=== PATIENT | male | born 1965 | race Hispanic/Latino ===

== ENCOUNTER 2018-03-02 12:54 | Emergency (ER) | payer OTHER ==
[~2018-03-02] VITALS: Ht 190.5 cm; Wt 145.1 kg
--- OUTSIDE RECORDS SUMMARY | 2018-03-02 12:57 | XMS REPORT ---
Author Author [facility] Address Unknown Phone Unavailable Care Team Providers Care Crayon Painter Name Role Phone LAURA SÁNCHEZ Unavailable Unavailable Problems This patient has no known problems. Allergies, Adverse Reactions, Alerts This patient has no known allergies or adverse reactions. Medications This patient has no known medications. Encounters Start Date/Time End Date/Time Encounter Type Admission Type Attending [facility] Care Department Encounter ID 2014-05-04 21:00:00 2014-05-04 23:59:00 Outpatient LAURA FLORES [facility] [place] SLEEP [id number]
--- OUTSIDE RECORDS SUMMARY | 2018-03-02 12:57 | XMS REPORT | Clinical Summary ---
Author Author [facility] Address Unknown Phone Unavailable Care Team Providers Care Special Event Assistant Name Role Phone Asked, Pcp PCP Unavailable Allergies No Known Allergies Current Medications Prescription Sig. Disp. Refills Start End Date Status Date PIOGLITAZONE HCL Take by mouth. Active (PIOGLITAZONE ORAL) ENALAPRIL MALEATE ORAL Take by mouth. Active METFORMIN HCL (METFORMIN Take by mouth. Active ORAL) GLIMEPIRIDE ORAL Take by mouth. Active HYDRALAZINE HCL Take by mouth. Active (HYDRALAZINE ORAL) acetaminophen-codeine Take 1-2 tablets by mouth 20 tablet 0 03/11/20 03/21/20 (TYLENOL WITH CODEINE #3) every 6 (six) hours as 17 17 300-30 mg per tablet needed for moderate pain for up to 10 days. cyclobenzaprine Take 1 tablet (10 mg 20 tablet 0 03/11/20 03/25/20 (FLEXERIL) 10 mg tablet total) by mouth 2 (two) 17 17 times a day as needed for muscle spasms for up to 14 days. Active Problems Not on file Encounters Date Type Specialty Care Team Description 03/11/2017 Emergency Emergency Medicine Terrance Guerrero MD Lumbar strain, initial encounter (Primary Dx) after 03/01/2017 Social History Tobacco Use Types Packs/Day Years Used Date Never Smoker Sex Assigned at Date Recorded Not on file Last Filed Vital Signs Vital Sign Reading Time Taken Blood Pressure 161/71 03/11/2017 11:11 AM CDT Pulse 109 03/11/2017 11:11 AM CDT Temperature 36.7 C (98 F) 03/11/2017 11:11 AM CDT Respiratory Rate 20 03/11/2017 11:11 AM CDT Oxygen Saturation 96% 03/11/2017 11:11 AM CDT Inhaled Oxygen - - Concentration Weight - - Height 190.5 cm (6' 3") 03/11/2017 11:11 AM CDT Body Mass Index - - Plan of Treatment Health Maintenance Due Date Last Done Comments COLONOSCOPY 2013 SHINGRIX VACCINE (#1) 2013 INFLUENZA VACCINE 06/07/2018 Results * ECG ED Preliminary Interpretation - NOT AN ORDER (03/19/2017 4:33 AM) Celio Guerrero MD 03/19/20174:33 AM ECG ED Preliminary Interpretation - Not an Order Performed by: TERRANCE GUERRERO Authorized by: TERRANCE GUERRERO ECG reviewed by ED Physician in the absence of a forge tender: yes Previous ECG: Previous ECG:Unavailable Interpretation: Interpretation: abnormal Rate: ECG rate:109 ECG rate assessment: tachycardic Rhythm: Rhythm: sinus tachycardia QRS: QRS axis:Normal QRS intervals:Normal ST segments: ST segments:Normal T waves: T waves: normal * Urinalysis screen and microscopy, with reflex to culture (03/11/2017 11:32 AM) Component Value Ref Range Specimen site Random void Color, UA Yellow Appearance, UA Clear Specific gravity, UA 1.015 1.001 - 1.035 pH, UA 7.0 5.0 - 8.5 Protein, UA Negative Negative Glucose, UA 2+ (A) Negative Ketones, UA Trace (A) Negative Bilirubin, UA Negative Negative Blood, UA Negative Negative Nitrite, UA Negative Negative Urobilinogen, UA <2.0 <2.0 Leukocyte esterase, UA Negative Negative Epithelial cells, UA <1 /HPF WBC, UA None seen 0 - 1 /HPF RBC, UA None seen 0 - 1 /HPF Bacteria, UA None seen None seen Yeast, UA None seen Yeast with pseudohyphae, None seen UA Specimen Performing Laboratory Urine DEPARTMENT OF PATHOLOGY AND GENOMIC MEDICINE, [facility] [address] [place] [address] after 03/01/2017 Insurance Payer Benefit Subscriber ID Type Phone Address Plan / Group ZAYAS EXCHANGE ZAYAS xxxxxxxxxx Exchange [employer] E EXCHANGE BCBS BCBS xxxxxxxxxxxx PPO CHOICE PPO/[place] [address]
[2018-03-02] MEDS ORDERED: GLYBURIDE2.5 MG (13:44)
[2018-03-02] MEDS ORDERED: VASOTEC10 M1 (13:44)
[2018-03-02] MEDS ORDERED: METFORMIN HCL850 MG PO (13:44)
[2018-03-02] MEDS ORDERED: LOVASTATIN40 MG (13:44)
[2018-03-02] MEDS ORDERED: HYDRALAZINE HCL50 MG (13:44)
[2018-03-02] MEDS ORDERED: PIOGLITAZONE HC45 MG PO (13:44)
[2018-03-02] MEDS: DONNATAL/LIDOCAINE/MAALOX 30 ML SUSP PO ONE (15:35)
[2018-03-02 16:24] VITALS: BP 130/70
== END 2018-03-02 16:25 | disposition home or self-care (01) ==
LOC: FSED 12:54
DX: R10.13 Epigastric pain (principal); E11.65 Type 2 diabetes mellitus with hyperglycemia; I10 Essential (primary) hypertension
CPT/HCPCS: 74176; 80053; 81003; 85025; 93005; 99284

== ENCOUNTER 2019-10-02 14:16 | Emergency (ER) | payer SELFPAY ==
[~2019-10-02] VITALS: Ht 190.5 cm; Wt 145.1 kg
[~2019-10-02 14:16] MED LIST: GLYBURIDE2.5 MG; HYDRALAZINE HCL50 MG; LOVASTATIN40 MG; METFORMIN HCL850 MG PO; PIOGLITAZONE HC45 MG PO; VASOTEC10 M1
[2019-10-02 15:56] VITALS: BP 119/72
== END 2019-10-02 15:58 | disposition home or self-care (01) ==
LOC: FSED 14:16
DX: R42 Dizziness and giddiness (principal); R51 Headache; H83.03 Labyrinthitis, bilateral
CPT/HCPCS: 80053; 81003; 85025; 87400; 93005; 99283

== ENCOUNTER 2019-12-19 20:49 | Emergency (ER) | payer SELFPAY ==
[~2019-12-19] VITALS: Ht 190.5 cm; Wt 145.1 kg
[2019-12-19] MEDS ORDERED: KETOROLAC TROMETHAMINE 60 MG/2 ML VIAL ONE (23:08)
[2019-12-19] MEDS ORDERED: ORPHENADRINE CITRATE 30 MG/ML VIAL ONE (23:08)
[2019-12-19] MEDS ORDERED: KETOROLAC TROMETHAMINE 60 MG/2 ML VIAL IM ONE (23:15)
[2019-12-19] MEDS ORDERED: ORPHENADRINE CITRATE 30 MG/ML VIAL IM ONE (23:15)
== END 2019-12-19 23:46 | disposition home or self-care (01) ==
LOC: ER 20:49
DX: S39.012A Strain of muscle, fascia and tendon of lower back, initial encounter (principal); I10 Essential (primary) hypertension; E11.9 Type 2 diabetes mellitus without complications; E78.5 Hyperlipidemia, unspecified
CPT/HCPCS: 99282; J1885; J2360

== ENCOUNTER 2024-11-21 18:47 | Emergency (ER) | payer OTHER ==
[~2024-11-21] VITALS: Ht 190.5 cm; Wt 127.0 kg
[2024-11-21 19:05] VITALS: TEMP 98.4
[2024-11-21 19:33] LABS: BASOPHILS # (AUTO) 0.1 (0.0-0.1); BASOPHILS % 0.8 % (0.0-1.0); EOSINOPHILS # (AUTO) 0.2 (0.0-0.4); EOSINOPHILS % 2.3 % (0.0-6.0); HEMATOCRIT 46.7 % (38.2-49.6); HEMOGLOBIN 14.6 g/dL (14.0-18.0); LYMPHOCYTES # (AUTO) 2.3 (1.0-3.2); LYMPHOCYTES % 35.1 % (18.0-39.1); MEAN CORPUSCULAR HEMOGLOBIN 31.7 pg (28-32); MEAN CORPUSCULAR HGB CONC 31.3 g/dL (31-35); MEAN CORPUSCULAR VOLUME 101.3 fL (81-99); MONOCYTES # (AUTO) 0.5 (0.2-0.8); MONOCYTES % 7.5 % (4.4-11.3); NEUTROPHILS # (AUTO) 3.6 (2.1-6.9); NEUTROPHILS % 53.8 % (38.7-80.0); PLATELET COUNT 187 x10e3/uL (140-360); RED BLOOD COUNT 4.61 x10e6/uL (4.3-5.7); WHITE BLOOD COUNT 6.63 x10e3/uL (4.8-10.8)
[2024-11-21 20:01] LABS: ALANINE AMINOTRANSFERASE 17 IU/L (0-55); ALBUMIN 3.9 g/dL (3.5-5.0); ALBUMIN/GLOBULIN RATIO 1.3 (0.8-2.0); ALKALINE PHOSPHATASE 38 IU/L (40-150); ANION GAP 16.9 mmol/L (8-16); BILIRUBIN,TOTAL 0.3 mg/dL (0.2-1.2); BLOOD UREA NITROGEN 10 mg/dL (7-26); BUN/CREATININE RATIO 15 (6-25); CALCIUM 9.3 mg/dL (8.4-10.2); CARBON DIOXIDE 21 mmol/L (22-29); CHLORIDE 111 mmol/L (98-107); CREATINE KINASE 84 IU/L (30-200); CREATININE, SERUM 0.65 mg/dL (0.72-1.25); EST GLOMERULAR FILTRATION RATE 107 ML/MIN (>=60); GLUCOSE 121 mg/dL (74-118); POTASSIUM 3.9 mmol/L (3.5-5.1); SODIUM 145 mmol/L (136-145)
[2024-11-21 20:25] LABS: TROPONIN I < 0.001 ng/mL (0-0.300)
[2024-11-21] MEDS: ASPIRIN 81 MG CHEW TAB PO ONE (21:14)
[2024-11-21 21:15] VITALS: PULSE 85; RESP 18
[2024-11-21 21:54] VITALS: BP 146/87; PULSE 85; RESP 18; TEMP 98.4; O2SAT 100
== END 2024-11-21 21:56 | disposition home or self-care (01) ==
LOC: ER 21:28
DX: R07.89 Other chest pain (principal); E11.65 Type 2 diabetes mellitus with hyperglycemia; I10 Essential (primary) hypertension; E78.5 Hyperlipidemia, unspecified; D64.9 Anemia, unspecified; F41.9 Anxiety disorder, unspecified
CPT/HCPCS: 36415; 71046; 80053; 82550; 84484; 85025; 93005; 99284